=== PATIENT | male | born 1940 | race Caucasian/White ===

== ENCOUNTER 2017-02-10 02:23 | Outpatient (CLI) | payer MEDICARE ==
[~2017-02-10 02:23] MED LIST: AMLO5TAB PO; CARV25TA2 PO; CLON0.3T PO; CLOP75TA15 PO; DOL10T PO; ENAL20TA75 PO; FENO200C PO; HYDR-565 PO; INSU100V12 SQ; NITR0.4T51 SL; ONDA8TAB9 PO; PANT-47 PO; POTA8TAB3 PO; PROC-8 PO; ROSU5TAB PO; TERA5CAP4 PO
== END 2017-02-10 23:59 | disposition home or self-care (01) ==
LOC: DIABETIC 02:23
PROVIDERS: ATTEND Family Medicine
DX: E11.65 Type 2 diabetes mellitus with hyperglycemia (principal); I10 Essential (primary) hypertension; Z85.828 Personal history of other malignant neoplasm of skin
CPT/HCPCS: G0108

== ENCOUNTER 2017-07-01 06:55 | Day surgery (SDC) | payer MEDICARE, OTHER ==
[2017-06-30 15:29] LABS: BASOPHILS % (AUTO) 0.3 % (0-1); EOSINOPHILS # (AUTO) 0.2 X10'3 (0-0.9); EOSINOPHILS % (AUTO) 3.5 % (0-6); HEMATOCRIT 40.4 % (42.0-52.0); HEMOGLOBIN 14.2 g/dl (14.0-17.9); LYMPHOCYTES # (AUTO) 1.5 X10'3 (1.1-4.8); LYMPHOCYTES % (AUTO) 24.9 % (21-51); MEAN CORPUSCULAR HEMOGLOBIN 31.2 PG (27.0-31.0); MEAN CORPUSCULAR HGB CONC 35.1 % (33.0-36.5); MEAN CORPUSCULAR VOLUME 88.8 FL (78-98); MEAN PLATELET VOLUME 9.7 FL (7.4-10.4); MONOCYTES # (AUTO) 0.5 X10'3 (0-0.9); MONOCYTES % (AUTO) 9.1 % (2-12); NEUTROPHILS # (AUTO) 3.6 X10'3 (1.8-7.7); NEUTROPHILS % (AUTO) 62.2 % (42-75); PLATELET COUNT 249 X10'3 (140-440); RED BLOOD COUNT 4.55 X10'6 (4.70-6.10); RED CELL DISTRIBUTION WIDTH 14.1 % (11.5-14.5); WHITE BLOOD COUNT 5.8 X10'3 (4.5-11.0)
[2017-06-30 15:40] LABS: INR 1.1 INR; PARTIAL THROMBOPLASTIN TIME 26 SECONDS (22-32); PROTHROMBIN TIME 11.5 SECONDS (9.0-12.0)
[2017-06-30 15:47] LABS: ALBUMIN 3.7 G/DL (3.4-5.0); ANION GAP 7 (8-16); BLOOD UREA NITROGEN 14 MG/DL (7-18); BUN/CREATININE RATIO 13.2 (5.4-32.0); CALCIUM 9.4 MG/DL (8.5-10.1); CHLORIDE 104 MMOL/L (99-107); CREATININE 1.06 MG/DL (0.60-1.10); GLUCOSE 232 MG/DL (70-104); POTASSIUM 3.2 MMOL/L (3.5-5.1); SODIUM 142 MMOL/L (135-145); TOTAL CARBON DIOXIDE 30.7 MMOL/L (24-32); eGFR 68 ML/MIN
[~2017-07-01] VITALS: Ht 182.9 cm; Wt 89.9 kg
[2017-07-01] VITALS (24 sets, daily range): BP systolic 127–248; BP diastolic 52–107
[~2017-07-01 06:55] MED LIST changes: +FURO-149 PO; +ISOS30TA6 PO; +LINA5TAB4 PO; -ONDA8TAB9 PO; -PANT-47 PO; -PROC-8 PO; +UMEC1DIS INH
[2017-07-01] MEDS ORDERED: normal saline 1000ml 1,000 ML IV SCH (07:15)
[2017-07-01] MEDS ORDERED: diphenhydrAMINE 25mg capsule PO PRN (07:15)
[2017-07-01] MEDS ORDERED: LORazepam 0.5 MG tablet PO PRN (07:20)
[2017-07-01] MEDS ORDERED: ASPI81TA52 PO (07:58)
[2017-07-01] MEDS ORDERED: NITR0.4T48 SL (07:58)
[2017-07-01] MEDS ORDERED: POTA10TA19 PO (08:01)
[2017-07-01] MEDS ORDERED: MULT-38 PO (08:09)
[2017-07-01] MEDS ORDERED: mega red PO (08:09)
[2017-07-01] MEDS ORDERED: PROC-8 PO (08:09)
[2017-07-01] MEDS ORDERED: SAW/1TAB2 PO (08:09)
[2017-07-01] MEDS ORDERED: CALC625T31 PO (08:09)
[2017-07-01] MEDS ORDERED: midazolam 2 mg/2 ml injection ONE ×2 (08:38→11:46)
[2017-07-01] MEDS ORDERED: fentaNYL/PF 50MCG/1 ML 2ML syringe ONE (08:38)
[2017-07-01] MEDS ORDERED: nitroGLYCERIN-Tridil 50MG/D5W 250 ML IV ONE (08:39)
[2017-07-01] MEDS ORDERED: LIDOcaine 1% w/EPI 1:100,000 30ml vial (MDV) ONE (08:39)
[2017-07-01] MEDS ORDERED: iohexol 350 MG/ML 50ML vial IV ONE ×2 (08:39→10:46)
[2017-07-01] MEDS ORDERED: heparin 1,000unit/ml 10ml vial 10 ML ONE (08:39)
[2017-07-01] MEDS ORDERED: iohexol 350MG/ML 100ml bottle IV ONE ×3 (08:39→11:50)
[2017-07-01] MEDS ORDERED: diltiazem 5mg/ml 5ml inj. IV ONE (10:30)
[2017-07-01] MEDS ORDERED: hydrALAZINE 20mg/ml inj. IV ONE (11:52)
[2017-07-01] MEDS ORDERED: clopidogrel 300mg tablet ONE (12:00)
[2017-07-01] MEDS ORDERED: MORPHINE 2MG in 2ml NS syringe ONE (12:36)
[2017-07-01] MEDS ORDERED: nitroGLYCERIN 0.4mg SUBLingual tab SL ONE (12:37)
[2017-07-01] MEDS ORDERED: morphine 2 MG/ML inj. syringe IV PRN (12:40)
[2017-07-01] MEDS ORDERED: HYDROcodone/acetaminophen 10/325mg tab PO PRN ×3 (12:50→13:35)
[2017-07-01] MEDS ORDERED: magnesium hydroxide 30ml (MOM) UD suspension PO PRN (12:50)
[2017-07-01] MEDS ORDERED: acetaminophen 325mg tablet PO PRN (12:50)
[2017-07-01] MEDS ORDERED: heparin 10,000 units/1 ML INJ IV PRN (12:50)
[2017-07-01] MEDS ORDERED: proCHLORperazine 10 MG/2 ml inj IV PRN (12:50)
[2017-07-01] MEDS ORDERED: heparin 10,000 units/1 ML INJ IV ONE (12:50)
[2017-07-01] MEDS: HYDROcodone/acetaminophen 10/325mg tab PO PRN ×3 (12:54→17:42)
[2017-07-01] MEDS: HYDROmorphone inj. 0.5 MG/0.5 ML DISP.SYRIN IV PRN ×3 (13:19→17:40)
[2017-07-01] MEDS ORDERED: nitroGLYCERIN-Tridil 50MG/D5W 250 ML IV SCH (13:30)
[2017-07-01] MEDS ORDERED: nitroGLYCERIN 0.4mg SUBLingual tab SL PRN (13:35)
[2017-07-01] MEDS ORDERED: proCHLORperazine 10mg tablet PO PRN ×2 (13:35→14:00)
[2017-07-01] MEDS: hydrALAZINE 20mg/ml inj. IV PRN ×2 (16:33→20:21)
[2017-07-01] MEDS ORDERED: ondansetron/PF 4mg/2ml inj ONE (18:00)
[2017-07-01] MEDS ORDERED: POTASSIUM CHLORIDE PO SCH (20:00)
[2017-07-01] MEDS ORDERED: INSULIN DETEMIR 60 UNIT SQ SCH (20:00)
[2017-07-01] MEDS ORDERED: docusate sod 100mg capsule PO SCH (20:00)
[2017-07-01] MEDS ORDERED: carVEDilol 12.5mg tablet PO SCH (20:00)
[2017-07-01] MEDS ORDERED: clopidogrel 75mg tablet PO SCH (21:00)
[2017-07-01] MEDS ORDERED: amLODIPine 5mg tablet PO SCH (21:00)
[2017-07-01] MEDS ORDERED: fenofibrate 145mg tablet PO SCH (21:00)
[2017-07-01] MEDS ORDERED: cloNIDine 0.1 mg tablet PO SCH (21:00)
[2017-07-01] MEDS ORDERED: terazosin 5mg capsule PO SCH (21:00)
[2017-07-02] MEDS ORDERED: linagliptin 5mg tablet PO SCH (08:00)
[2017-07-02] MEDS ORDERED: aspirin 325mg tablet, delayed-release (Ecotrin) PO SCH (08:00)
[2017-07-02] MEDS ORDERED: SAW PO SCH (08:00)
[2017-07-02] MEDS ORDERED: SOD SEL PO SCH (08:00)
[2017-07-02] MEDS ORDERED: lisinopril 2.5mg tablet PO SCH (08:00)
[2017-07-02] MEDS ORDERED: clopidogrel 75mg tablet PO SCH (08:00)
[2017-07-02] MEDS ORDERED: BETA PO SCH (08:00)
[2017-07-02] MEDS ORDERED: PYG PO SCH (08:00)
[2017-07-02] MEDS ORDERED: LYC PO SCH (08:00)
[2017-07-02] MEDS ORDERED: furosemide 40mg tablet PO SCH (08:00)
[2017-07-02] MEDS ORDERED: isosorbide mononitrate 30mg tab.SR.24H PO SCH (08:00)
[2017-07-02] MEDS ORDERED: atorvastatin 20mg tablet PO SCH (08:00)
[2017-07-02] MEDS ORDERED: multivitamins, therapeutics tablet PO SCH (08:00)
[2017-07-02] MEDS ORDERED: methadone 5mg tablet PO SCH (08:00)
[2017-07-02] MEDS ORDERED: MEGA RED PO SCH (08:00)
[2017-07-02] MEDS ORDERED: VIT E PO SCH (08:00)
== END 2017-07-01 20:50 | disposition home or self-care (01) ==
LOC: SSTAY O 06:55
PROVIDERS: ATTEND Internal Medicine Cardiovascular Disease
DX: I25.719 Atherosclerosis of autologous vein coronary artery bypass graft(s) with unspecified angina pectoris (principal); E11.9 Type 2 diabetes mellitus without complications; E78.5 Hyperlipidemia, unspecified; I11.0 Hypertensive heart disease with heart failure; I50.9 Heart failure, unspecified; I25.2 Old myocardial infarction; K21.9 Gastro-esophageal reflux disease without esophagitis; F32.9 Major depressive disorder, single episode, unspecified; Z95.1 Presence of aortocoronary bypass graft; Z79.891 Long term (current) use of opiate analgesic; Z79.82 Long term (current) use of aspirin; Z95.5 Presence of coronary angioplasty implant and graft; Z85.828 Personal history of other malignant neoplasm of skin; Z90.49 Acquired absence of other specified parts of digestive tract; Z91.048 Other nonmedicinal substance allergy status; Z88.8 Allergy status to other drugs, medicaments and biological substances; Z87.891 Personal history of nicotine dependence; Z79.4 Long term (current) use of insulin; Z79.899 Other long term (current) drug therapy
CPT/HCPCS: 36415; 80048; 82948; 85025; 85347; 85610; 85730; 93005; 93459; 99152; 99153; A6257; C1725; C1769; C1874; C9604; J0360; J1170; J1644; J2250; J2274; J2405; J3010; J3490; J7030; Q0163; Q9967; A4620

== ENCOUNTER 2017-08-05 08:54 | Day surgery (SDC) | payer MEDICARE, OTHER ==
[2017-08-04 11:33] LABS: BASOPHILS # (AUTO) 0.1 X10'3 (0-0.2); EOSINOPHILS # (AUTO) 0.2 X10'3 (0-0.9); EOSINOPHILS % (AUTO) 3.4 % (0-6); HEMATOCRIT 39.6 % (42.0-52.0); HEMOGLOBIN 14.1 g/dl (14.0-17.9); LYMPHOCYTES # (AUTO) 1.1 X10'3 (1.1-4.8); LYMPHOCYTES % (AUTO) 18.2 % (21-51); MEAN CORPUSCULAR HEMOGLOBIN 31.3 PG (27.0-31.0); MEAN CORPUSCULAR HGB CONC 35.5 % (33.0-36.5); MEAN CORPUSCULAR VOLUME 88.1 FL (78-98); MEAN PLATELET VOLUME 9.5 FL (7.4-10.4); MONOCYTES # (AUTO) 0.5 X10'3 (0-0.9); MONOCYTES % (AUTO) 8.8 % (2-12); NEUTROPHILS # (AUTO) 4.3 X10'3 (1.8-7.7); NEUTROPHILS % (AUTO) 68.6 % (42-75); PLATELET COUNT 238 X10'3 (140-440); RED CELL DISTRIBUTION WIDTH 13.9 % (11.5-14.5); WHITE BLOOD COUNT 6.2 X10'3 (4.5-11.0)
[2017-08-04 11:41] LABS: INR 1.1 INR; PARTIAL THROMBOPLASTIN TIME 26 SECONDS (22-32); PROTHROMBIN TIME 11.6 SECONDS (9.0-12.0)
[2017-08-04 11:42] LABS: ALBUMIN 3.6 G/DL (3.4-5.0); ANION GAP 8 (8-16); BLOOD UREA NITROGEN 12 MG/DL (7-18); BUN/CREATININE RATIO 10.3 (5.4-32.0); CALCIUM 9.4 MG/DL (8.5-10.1); CHLORIDE 104 MMOL/L (99-107); CREATININE 1.17 MG/DL (0.60-1.10); GLUCOSE 243 MG/DL (70-104); POTASSIUM 3.5 MMOL/L (3.5-5.1); SODIUM 142 MMOL/L (135-145); TOTAL CARBON DIOXIDE 29.6 MMOL/L (24-32); eGFR 60 ML/MIN
[~2017-08-05] VITALS: Ht 182.9 cm; Wt 88.0 kg
[2017-08-05] VITALS (17 sets, daily range): BP systolic 136–181; BP diastolic 62–94
[~2017-08-05 08:54] MED LIST changes: +ASPI81TA52 PO; +CALC625T31 PO; +MULT-38 PO; +NITR0.4T48 SL; -NITR0.4T51 SL; +POTA10TA19 PO; -POTA8TAB3 PO; +PROC-8 PO; +SAW/1TAB2 PO; +calcium polycarbophil 625mg tablet PO SCH; +mega red PO
[2017-08-05] MEDS ORDERED: LORazepam 0.5 MG tablet PO PRN (09:25)
[2017-08-05] MEDS ORDERED: diphenhydrAMINE 25mg capsule PO PRN (09:25)
[2017-08-05] MEDS ORDERED: HYDROcodone/acetaminophen 10/325mg tab PO PRN (09:25)
[2017-08-05] MEDS ORDERED: INSU100V12 SQ (10:36)
[2017-08-05] MEDS ORDERED: CARV-50 PO (10:36)
[2017-08-05] MEDS ORDERED: isosorbide dinitrate PO (10:36)
[2017-08-05] MEDS ORDERED: METH-603 PO (10:36)
[2017-08-05] MEDS ORDERED: UMEC1DIS PO (10:36)
[2017-08-05] MEDS ORDERED: AMLO-93 PO (10:36)
[2017-08-05] MEDS ORDERED: ASPI-1264 PO (10:36)
[2017-08-05] MEDS ORDERED: iohexol 350 MG/1 ML 200ml bottle ONE (10:57)
[2017-08-05] MEDS ORDERED: midazolam 2 mg/2 ml injection ONE (10:57)
[2017-08-05] MEDS ORDERED: heparin 1,000unit/ml 10ml vial 10 ML ONE ×2 (10:57→13:24)
[2017-08-05] MEDS ORDERED: nitroGLYCERIN-Tridil 50MG/D5W 250 ML IV ONE (10:57)
[2017-08-05] MEDS ORDERED: fentaNYL/PF 50MCG/1 ML 2ML syringe ONE (10:57)
[2017-08-05] MEDS: normal saline 1000ml 1,000 ML IV SCH ×2 (11:07→18:51)
[2017-08-05] MEDS ORDERED: LIDOcaine 1% w/EPI 1:100,000 30ml vial (MDV) ONE (11:25)
[2017-08-05] MEDS ORDERED: HYDROmorphone 1 mg/ml syringe ONE ×2 (12:51→13:49)
[2017-08-05] MEDS ORDERED: heparin 1,000 UNITS/NS 500ml 500 ML ONE (12:53)
[2017-08-05] MEDS ORDERED: iohexol 350MG/ML 100ml bottle IV ONE (12:56)
[2017-08-05] MEDS ORDERED: atropine 0.1mg/ml 10ml syringe ONE (13:10)
[2017-08-05] MEDS ORDERED: ondansetron/PF 4mg/2ml inj ONE (13:12)
[2017-08-05] MEDS ORDERED: ticagrelor 90mg tablet ONE (13:30)
[2017-08-05] MEDS ORDERED: tirofiban 5mg in NS 100mL 100 ML IV ONE (13:30)
[2017-08-05] MEDS: tirofiban 5mg in NS 100mL 100 ML IV SCH (15:04)
[2017-08-05] MEDS ORDERED: aspirin 81mg tab.chew PO ONE (15:10)
[2017-08-05] MEDS ORDERED: HYDROmorphone 1 mg/ml syringe IV PRN (15:10)
[2017-08-05] MEDS ORDERED: cyclobenzaprine 10mg tablet PO PRN (15:10)
[2017-08-05] MEDS ORDERED: non-formulary drug (Umeclidinium Brm/Vilanterol Tr (Anoro Ellipta 62.5-25 Mcg INH) 1 PUFF) PO PRN (15:10)
[2017-08-05] MEDS ORDERED: proCHLORperazine 10mg tablet PO PRN (15:10)
[2017-08-05] MEDS ORDERED: magnesium hydroxide 30ml (MOM) UD suspension PO PRN (15:10)
[2017-08-05] MEDS ORDERED: nitroGLYCERIN 0.4mg SUBLingual tab SL PRN (15:10)
[2017-08-05] MEDS ORDERED: OXAZEpam 15mg capsule PO PRN (15:10)
[2017-08-05] MEDS: HYDROmorphone 1 mg/ml syringe IV PRN ×3 (16:13→21:00)
[2017-08-05] MEDS: HYDROcodone/acetaminophen 10/325mg tab PO PRN (16:21)
[2017-08-05] MEDS ORDERED: AMLO10TA4 PO (17:29)
[2017-08-05] MEDS ORDERED: LIDOcaine 1.5% w/epinephrine 1:200,000 5ml ampul ONE (18:21)
[2017-08-05] MEDS ORDERED: nitroGLYCERIN-Tridil 50MG/D5W 250 ML IV SCH (18:40)
[2017-08-05] MEDS: nitroGLYCERIN 0.4mg SUBLingual tab SL PRN ×4 (18:52→21:41)
[2017-08-05] MEDS: hydrALAZINE 20mg/ml inj. IV PRN (18:55)
[2017-08-05] MEDS: docusate sod 100mg capsule PO SCH (20:00)
[2017-08-05] MEDS ORDERED: lisinopril 20mg tablet PO SCH (20:00)
[2017-08-05] MEDS ORDERED: ticagrelor 90mg tablet PO SCH (20:00)
[2017-08-05] MEDS ORDERED: terazosin 5mg capsule PO SCH (21:00)
[2017-08-05] MEDS ORDERED: Insulin Detemir pen SQ SCH (21:00)
[2017-08-05] MEDS ORDERED: fenofibrate 145mg tablet PO SCH (21:00)
[2017-08-05] MEDS: methadone 10mg tablet PO SCH (21:02)
[2017-08-05] MEDS: cloNIDine 0.1 mg tablet PO SCH (21:02)
[2017-08-05] MEDS: potassium chloride 10mEq ER tablet PO SCH (21:03)
[2017-08-05] MEDS: carVEDilol 12.5mg tablet PO SCH (21:03)
[2017-08-05] MEDS ORDERED: HYDROmorphone 1 mg/ml syringe IV ONE (21:50)
[2017-08-05] MEDS ORDERED: insulin glargine (Lantus) pen - multi-dose SQ SCH (22:13)
[2017-08-05] MEDS: ondansetron/PF 4mg/2ml inj IV PRN (22:23)
[2017-08-06] VITALS (11 sets, daily range): BP systolic 107–179; BP diastolic 41–82
[2017-08-06] MEDS ORDERED: LORazepam 2 mg/ml vial IV ONE
[2017-08-06] MEDS: morphine 2 MG/ML inj. syringe IV PRN ×2 (00:35→02:46)
[2017-08-06] MEDS: hydrALAZINE 20mg/ml inj. IV PRN (02:47)
[2017-08-06] MEDS: tirofiban 5mg in NS 100mL 100 ML IV SCH (03:13)
[2017-08-06] MEDS: HYDROcodone/acetaminophen 10/325mg tab PO PRN (03:43)
[2017-08-06] MEDS: normal saline 1000ml 1,000 ML IV SCH ×2 (04:04→15:25)
[2017-08-06 05:17] LABS: BASOPHILS % (AUTO) 0 % (0-1); EOSINOPHILS % (AUTO) 0.1 % (0-6); HEMATOCRIT 43.2 % (42.0-52.0); LYMPHOCYTES # (AUTO) 0.8 X10'3 (1.1-4.8); LYMPHOCYTES % (AUTO) 7.6 % (21-51); MEAN CORPUSCULAR HEMOGLOBIN 30.7 PG (27.0-31.0); MEAN CORPUSCULAR HGB CONC 34.7 % (33.0-36.5); MEAN CORPUSCULAR VOLUME 88.3 FL (78-98); MEAN PLATELET VOLUME 9.6 FL (7.4-10.4); MONOCYTES # (AUTO) 0.7 X10'3 (0-0.9); MONOCYTES % (AUTO) 6.5 % (2-12); NEUTROPHILS # (AUTO) 9.1 X10'3 (1.8-7.7); NEUTROPHILS % (AUTO) 85.8 % (42-75); PLATELET COUNT 281 X10'3 (140-440); RED BLOOD COUNT 4.89 X10'6 (4.70-6.10); RED CELL DISTRIBUTION WIDTH 14.2 % (11.5-14.5); WHITE BLOOD COUNT 10.7 X10'3 (4.5-11.0)
[2017-08-06] MEDS: ondansetron/PF 4mg/2ml inj IV PRN (05:21)
[2017-08-06 05:24] LABS: ALBUMIN 3.8 G/DL (3.4-5.0); ANION GAP 16 (8-16); BLOOD UREA NITROGEN 14 MG/DL (7-18); BUN/CREATININE RATIO 13.1 (5.4-32.0); CHLORIDE 105 MMOL/L (99-107); CREATININE 1.07 MG/DL (0.60-1.10); GLUCOSE 250 MG/DL (70-104); SODIUM 146 MMOL/L (135-145); TOTAL CARBON DIOXIDE 25.2 MMOL/L (24-32); eGFR 67 ML/MIN
[2017-08-06 05:40] LABS: POTASSIUM 2.9 MMOL/L (3.5-5.1)
[2017-08-06] MEDS ORDERED: potassium Cl 40MEQ/NS 500ml 500 ML IV PRN ×2 (05:55)
[2017-08-06] MEDS ORDERED: magnesium 4gm in 100ml NS 100 ML IV PRN (05:55)
[2017-08-06] MEDS ORDERED: magnesium Cl slow-release 64mg tablet PO PRN (05:55)
[2017-08-06] MEDS ORDERED: potassium Cl 20 mEq SR tablet PO PRN (05:55)
[2017-08-06] MEDS ORDERED: magnesium/D5W IVPB 100 ML IV PRN (05:55)
[2017-08-06] MEDS ORDERED: LORazepam 2 mg/ml vial IV PRN (06:00)
[2017-08-06] MEDS ORDERED: proCHLORperazine 10 MG/2 ml inj IV PRN (07:40)
[2017-08-06] MEDS ORDERED: TICA90TA PO (07:42)
[2017-08-06] MEDS ORDERED: ASPI-1265 PO (07:42)
[2017-08-06] MEDS: potassium chloride 10mEq ER tablet PO SCH (07:57)
[2017-08-06] MEDS: methadone 10mg tablet PO SCH (07:58)
[2017-08-06] MEDS: cloNIDine 0.1 mg tablet PO SCH ×2 (07:58→13:58)
[2017-08-06] MEDS: docusate sod 100mg capsule PO SCH (07:58)
[2017-08-06] MEDS ORDERED: aspirin 81mg tab.chew PO SCH (08:00)
[2017-08-06] MEDS ORDERED: MEGA RED PO SCH (08:00)
[2017-08-06] MEDS ORDERED: amLODIPine 5mg tablet PO SCH ×2 (08:00)
[2017-08-06] MEDS ORDERED: furosemide 40mg tablet PO SCH (08:00)
[2017-08-06] MEDS ORDERED: LYC PO SCH (08:00)
[2017-08-06] MEDS ORDERED: multivitamins, therapeutics tablet PO SCH (08:00)
[2017-08-06] MEDS ORDERED: VIT E PO SCH (08:00)
[2017-08-06] MEDS: carVEDilol 12.5mg tablet PO SCH (08:00)
[2017-08-06] MEDS ORDERED: isosorbide dinitrate 30mg tablet PO SCH (08:00)
[2017-08-06] MEDS ORDERED: lisinopril 20mg tablet PO SCH (08:00)
[2017-08-06] MEDS ORDERED: BETA PO SCH (08:00)
[2017-08-06] MEDS ORDERED: SAW PO SCH (08:00)
[2017-08-06] MEDS ORDERED: linagliptin 5mg tablet PO SCH (08:00)
[2017-08-06] MEDS ORDERED: Umeclidinium Brm/Vilanterol Tr (Anoro Ellipta 62.5-25 Mcg INH IH SCH (08:00)
[2017-08-06] MEDS ORDERED: PYG PO SCH (08:00)
[2017-08-06] MEDS ORDERED: atorvastatin 20mg tablet PO SCH (08:00)
[2017-08-06] MEDS ORDERED: SOD SEL PO SCH (08:00)
[2017-08-06] MEDS ORDERED: aspirin 325mg tablet PO SCH (08:00)
[2017-08-06 09:30] LABS: HEMOGLOBIN A1C 7.9 % (4.5-6.2)
[2017-08-06] MEDS: potassium Cl 20 mEq SR tablet PO PRN ×2 (11:30→14:43)
[2017-08-06] MEDS ORDERED: insulin Lispro (HumaLOG) vial - multi-dose SQ SCH (12:25)
[2017-08-06] MEDS ORDERED: insulin glargine (Lantus) pen - multi-dose SQ SCH (21:00)
== END 2017-08-06 16:40 | disposition home or self-care (01) ==
LOC: SSTAY O 08:54 → PCU 3S 20:07 → SSTAY O 08-06 16:40
PROVIDERS: ATTEND Internal Medicine Cardiovascular Disease
DX: I25.798 Atherosclerosis of other coronary artery bypass graft(s) with other forms of angina pectoris (principal); E78.5 Hyperlipidemia, unspecified; E11.9 Type 2 diabetes mellitus without complications; I70.1 Atherosclerosis of renal artery; I11.0 Hypertensive heart disease with heart failure; I50.9 Heart failure, unspecified; K21.9 Gastro-esophageal reflux disease without esophagitis; I25.2 Old myocardial infarction; F32.9 Major depressive disorder, single episode, unspecified; J44.9 Chronic obstructive pulmonary disease, unspecified; Z90.49 Acquired absence of other specified parts of digestive tract; Z79.82 Long term (current) use of aspirin; Z91.048 Other nonmedicinal substance allergy status; Z86.79 Personal history of other diseases of the circulatory system; Z95.5 Presence of coronary angioplasty implant and graft; Z95.1 Presence of aortocoronary bypass graft; Z79.891 Long term (current) use of opiate analgesic; Z79.4 Long term (current) use of insulin; Z87.891 Personal history of nicotine dependence; Z85.828 Personal history of other malignant neoplasm of skin; Z88.8 Allergy status to other drugs, medicaments and biological substances; Z98.890 Other specified postprocedural states; Z79.899 Other long term (current) drug therapy
CPT/HCPCS: 36415; 80048; 82948; 83036; 85025; 85347; 85610; 85730; 87070; 93005; 99152; 99153; A4315; A6257; C1725; C1760; C1769; C1874; C1887; C1894; C9600; C9601; J0360; J0780; J1170; J1644; J2060; J2250; J2270; J2405; J3010; J3246; J3480; J3490; J7030; Q0163; Q9967; A4620; J0461; J1815

== ENCOUNTER 2017-08-10 08:02 | Inpatient (IN) | payer MEDICARE, OTHER ==
[~2017-08-10] VITALS: Ht 182.9 cm; Wt 90.9 kg
[~2017-08-10 08:02] MED LIST changes: +AMLO10TA4 PO; -AMLO5TAB PO; +ASPI-1265 PO; -ASPI81TA52 PO; +CARV-50 PO; -CARV25TA2 PO; -CLOP75TA15 PO; -DOL10T PO; -ISOS30TA6 PO; +METH-603 PO; +TICA90TA PO; +UMEC1DIS PO; -calcium polycarbophil 625mg tablet PO SCH; +isosorbide dinitrate PO
[2017-08-10] MEDS ORDERED: CefTRIAXone 2gm/D5W 50ml 50 ML IV ONE (08:25)
[2017-08-10] MEDS ORDERED: normal saline 1000ML IV soln IV ONE (08:25)
[2017-08-10] MEDS ORDERED: ondansetron/PF 4mg/2ml inj IV ONE (08:45)
[2017-08-10 08:47] LABS: CLARITY,URINE CLOUDY (Clear); COLOR,URINE YELLOW (Yellow); GLUCOSE, URINE NEGATIVE (Neg); KETONES,URINE NEGATIVE (Neg); LEUKOCYTE ESTERASE ,URINE TRACE (Neg); NITRITES, URINE POSITIVE (Neg); OCCULT BLOOD,URINE SMALL (Neg); PROTEIN,URINE 100 mg/dl (Neg)
[2017-08-10 08:47] LABS: INR 1.2 INR; PARTIAL THROMBOPLASTIN TIME 37 SECONDS (22-32)
[2017-08-10 08:51] LABS: UA COLLECTION TYPE STRAIGHT CATH
[2017-08-10 08:53] LABS: WBC,URINE 20-30 /HPF (0-4)
[2017-08-10 08:54] LABS: BACTERIA,URINE 4+ /HPF (Neg); MUCUS STRANDS FEW /LPF (Neg); RBC,URINE 0-2 /HPF (0-2); SQUAMOUS EPITHELIAL CELL,UR FEW /LPF (FEW); TRANSITIONAL EPI CELLS,URINE FEW /HPF; WBC CLUMPS,URINE FEW /HPF (NEGATIVE)
[2017-08-10 08:54] LABS: ALANINE AMINOTRANSFERASE 24 U/L (12-78); ALBUMIN 2.6 G/DL (3.4-5.0); ALBUMIN/GLOBULIN RATIO 0.6 (1.1-1.5); ALKALINE PHOSPHATASE 72 IU/L (46-116); ANION GAP 9 (8-16); ASPARTATE AMINO TRANSFERASE 23 U/L (10-37); BILIRUBIN,TOTAL 0.6 MG/DL (0.1-1.0); BLOOD UREA NITROGEN 19 MG/DL (7-18); BUN/CREATININE RATIO 14.6 (5.4-32.0); CHLORIDE 103 MMOL/L (99-107); GLUCOSE 121 MG/DL (70-104); POTASSIUM 4.3 MMOL/L (3.5-5.1); SODIUM 135 MMOL/L (135-145); TOTAL CARBON DIOXIDE 22.8 MMOL/L (24-32); TOTAL PROTEIN 7.2 G/DL (6.4-8.2); eGFR 54 ML/MIN
[2017-08-10 09:45] LABS: BASOPHILS % (AUTO) 0 % (0-1); EOSINOPHILS # (AUTO) 0.1 X10'3 (0-0.9); EOSINOPHILS % (AUTO) 1.1 % (0-6); HEMATOCRIT 33.9 % (42.0-52.0); HEMOGLOBIN 11.6 g/dl (14.0-17.9); LYMPHOCYTES # (AUTO) 0.4 X10'3 (1.1-4.8); LYMPHOCYTES % (AUTO) 3.8 % (21-51); MEAN CORPUSCULAR HEMOGLOBIN 30.8 PG (27.0-31.0); MEAN CORPUSCULAR HGB CONC 34.2 % (33.0-36.5); MEAN CORPUSCULAR VOLUME 90.1 FL (78-98); MEAN PLATELET VOLUME 9.7 FL (7.4-10.4); MONOCYTES # (AUTO) 0.8 X10'3 (0-0.9); MONOCYTES % (AUTO) 6.8 % (2-12); NEUTROPHILS # (AUTO) 10.4 X10'3 (1.8-7.7); NEUTROPHILS % (AUTO) 88.3 % (42-75); PLATELET COUNT 211 X10'3 (140-440); RED BLOOD COUNT 3.76 X10'6 (4.70-6.10); RED CELL DISTRIBUTION WIDTH 15.3 % (11.5-14.5); WHITE BLOOD COUNT 11.8 X10'3 (4.5-11.0)
[2017-08-10] MEDS ORDERED: furosemide 20 MG/2 ML vial IV ONE (10:35)
[2017-08-10] MEDS ORDERED: mag hydrox/Alum hydrox/simeth 30ml oral suspension PO PRN (10:40)
[2017-08-10] MEDS ORDERED: magnesium hydroxide 30ml (MOM) UD suspension PO PRN (10:40)
[2017-08-10] MEDS ORDERED: morphine 4 MG/ML inj SYRINge IV PRN (10:40)
[2017-08-10 12:00] VITALS: BP 179/80
[2017-08-10] MEDS ORDERED: VILANTEROL TR PO PRN (12:25)
[2017-08-10] MEDS ORDERED: UMECLIDINIUM BRM PO PRN (12:25)
[2017-08-10] MEDS ORDERED: nitroGLYCERIN 0.4mg SUBLingual tab SL SCH (12:30)
[2017-08-10] MEDS ORDERED: dextrose ORAL solution 15 GM/59 ML bottle PO PRN ×2 (12:35)
[2017-08-10] MEDS ORDERED: glucagon, human recombinant 1mg kit SUBCUT PRN (12:35)
[2017-08-10] MEDS ORDERED: MESSAGE TO PHARMACY PO ONE (12:35)
[2017-08-10] MEDS ORDERED: dextrose 50%-water 50ml dispensing syringe IV PRN ×2 (12:35)
[2017-08-10] MEDS ORDERED: nitroGLYCERIN 0.4mg SUBLingual tab SL PRN (12:45)
[2017-08-10] MEDS: aspirin 81mg tab.chew PO SCH (13:23)
[2017-08-10] MEDS: cloNIDine 0.1 mg tablet PO SCH ×2 (13:24→20:42)
[2017-08-10 15:00] VITALS: BP 156/69
[2017-08-10] MEDS: acetaminophen 325mg tablet PO PRN ×2 (15:36→21:58)
[2017-08-10 19:00] VITALS: BP 143/68
[2017-08-10] MEDS: methadone 10mg tablet PO SCH (20:42)
[2017-08-10] MEDS: carVEDilol 12.5mg tablet PO SCH (20:42)
[2017-08-10] MEDS: docusate sod 100mg capsule PO SCH (20:43)
[2017-08-10] MEDS: ticagrelor 90mg tablet PO SCH (20:43)
[2017-08-10] MEDS: potassium chloride 8mEq ER tablet PO SCH (20:52)
[2017-08-10] MEDS: insulin glargine (Lantus) pen - multi-dose SQ SCH (21:00)
[2017-08-10] MEDS: FENOFIBRATE MICRONIZED 200 MG PO SCH (21:00)
[2017-08-10] MEDS: sennosides 8.6mg tablet PO SCH (21:58)
[2017-08-10] MEDS: terazosin 5mg capsule PO SCH (21:59)
[2017-08-10 22:05] LABS: ABG BASE EXCESS -1.1 mmol/L (-2.0-3.0); ABG HCO3 21.5 mmol/L (22.0-26.0); ABG PCO2 (T) 33.3 mmHg (35.0-48.0); ABG PH (T) 7.438 (7.350-7.450); ABG PO2 (T) 71.9 mmHg (83-108); ALLEN'S TEST Positive; FCOHb 0.2 % (0.5-1.5); FLOW 2 L/min; FMetHb 0.6 % (0.3-1.12); FO2Hb 92.3 % (94-100); PATIENT TEMPERATURE 39.2; TOTAL HEMOGLOBIN 13.4 G/dl (14.0-18.0)
[2017-08-10 23:00] VITALS: BP 155/71
[2017-08-10] MEDS ORDERED: diphenhydrAMINE 50 mg/ml inj IV ONE (23:00)
[2017-08-10] MEDS ORDERED: metoclopramide 5 mg/ml inj IV ONE (23:00)
[2017-08-11] MEDS: HYDROcodone/acetaminophen 10/325mg tab PO PRN ×3 (00:55→23:00)
[2017-08-11 02:42] LABS: BASOPHILS % (AUTO) 0.1 % (0-1); EOSINOPHILS % (AUTO) 0 % (0-6); HEMATOCRIT 35.6 % (42.0-52.0); HEMOGLOBIN 12.3 g/dl (14.0-17.9); LYMPHOCYTES # (AUTO) 0.3 X10'3 (1.1-4.8); LYMPHOCYTES % (AUTO) 3.8 % (21-51); MEAN CORPUSCULAR HEMOGLOBIN 31.1 PG (27.0-31.0); MEAN CORPUSCULAR HGB CONC 34.5 % (33.0-36.5); MEAN CORPUSCULAR VOLUME 90.2 FL (78-98); MEAN PLATELET VOLUME 9.5 FL (7.4-10.4); MONOCYTES # (AUTO) 0.6 X10'3 (0-0.9); MONOCYTES % (AUTO) 7.1 % (2-12); NEUTROPHILS # (AUTO) 7.4 X10'3 (1.8-7.7); PLATELET COUNT 236 X10'3 (140-440); RED BLOOD COUNT 3.94 X10'6 (4.70-6.10); RED CELL DISTRIBUTION WIDTH 15.3 % (11.5-14.5); WHITE BLOOD COUNT 8.3 X10'3 (4.5-11.0)
[2017-08-11 03:00] VITALS: BP 144/75
[2017-08-11 03:00] LABS: ALBUMIN 2.4 G/DL (3.4-5.0); ANION GAP 13 (8-16); BLOOD UREA NITROGEN 18 MG/DL (7-18); BUN/CREATININE RATIO 15.1 (5.4-32.0); CALCIUM 9.7 MG/DL (8.5-10.1); CHLORIDE 103 MMOL/L (99-107); CREATININE 1.19 MG/DL (0.60-1.10); GLUCOSE 168 MG/DL (70-104); MAGNESIUM 1.9 MG/DL (1.5-2.4); POTASSIUM 3.9 MMOL/L (3.5-5.1); SODIUM 137 MMOL/L (135-145); TOTAL CARBON DIOXIDE 20.8 MMOL/L (24-32); eGFR 59 ML/MIN
[2017-08-11 03:04] LABS: TROPONIN I 1.71 NG/ML (0.0-0.05)
[2017-08-11] MEDS: acetaminophen 325mg tablet PO PRN ×2 (04:18→22:33)
[2017-08-11 06:00] VITALS: BP 138/70
[2017-08-11] MEDS ORDERED: PYG PO SCH (08:00)
[2017-08-11] MEDS ORDERED: SAW PO SCH (08:00)
[2017-08-11] MEDS ORDERED: BETA PO SCH (08:00)
[2017-08-11] MEDS ORDERED: SOD SEL PO SCH (08:00)
[2017-08-11] MEDS ORDERED: LYC PO SCH (08:00)
[2017-08-11] MEDS: UMECLIDINIUM BRM IH SCH (08:00)
[2017-08-11] MEDS ORDERED: MEGA RED PO SCH (08:00)
[2017-08-11] MEDS ORDERED: VIT E PO SCH (08:00)
[2017-08-11] MEDS: VILANTEROL TR IH SCH (08:00)
[2017-08-11] MEDS: CefTRIAXone 2gm/D5W 50ml 50 ML IV SCH (08:53)
[2017-08-11] MEDS: docusate sod 100mg capsule PO SCH ×2 (08:54→19:48)
[2017-08-11] MEDS: isosorbide mononitrate 30mg tab.SR.24H PO SCH (08:54)
[2017-08-11] MEDS: ticagrelor 90mg tablet PO SCH ×2 (08:54→19:49)
[2017-08-11] MEDS: carVEDilol 12.5mg tablet PO SCH ×2 (08:54→19:49)
[2017-08-11] MEDS: amLODIPine 5mg tablet PO SCH (08:54)
[2017-08-11] MEDS: aspirin 81mg tab.chew PO SCH (08:54)
[2017-08-11] MEDS: methadone 10mg tablet PO SCH ×2 (08:55→19:48)
[2017-08-11] MEDS: atorvastatin 20mg tablet PO SCH (08:55)
[2017-08-11] MEDS: cloNIDine 0.1 mg tablet PO SCH ×3 (08:55→21:16)
[2017-08-11] MEDS: multivitamins, therapeutics tablet PO SCH (08:55)
[2017-08-11] MEDS: potassium chloride 8mEq ER tablet PO SCH ×2 (08:55→19:49)
[2017-08-11 11:00] VITALS: BP 109/56
[2017-08-11] MEDS: insulin Lispro (HumaLOG) vial - multi-dose SQ SCH ×2 (13:21→19:06)
[2017-08-11 15:00] VITALS: BP 115/58
[2017-08-11 19:00] VITALS: BP 144/58
[2017-08-11] MEDS: proCHLORperazine 10mg tablet PO PRN (19:47)
[2017-08-11] MEDS: lactobacillus rhamnosus 10,000 MMU CELLS/CAPSULE PO SCH (19:48)
[2017-08-11] MEDS: FENOFIBRATE MICRONIZED 200 MG PO SCH (21:15)
[2017-08-11] MEDS: sennosides 8.6mg tablet PO SCH (21:15)
[2017-08-11] MEDS: terazosin 5mg capsule PO SCH (21:16)
[2017-08-11] MEDS: insulin glargine (Lantus) pen - multi-dose SQ SCH (21:21)
[2017-08-11 23:00] VITALS: BP 143/79
[2017-08-12] VITALS (7 sets, daily range): BP systolic 113–155; BP diastolic 53–77
[2017-08-12 05:45] LABS: BASOPHILS % (AUTO) 0 % (0-1); EOSINOPHILS % (AUTO) 0.5 % (0-6); HEMATOCRIT 32.4 % (42.0-52.0); HEMOGLOBIN 11.2 g/dl (14.0-17.9); LYMPHOCYTES # (AUTO) 0.5 X10'3 (1.1-4.8); LYMPHOCYTES % (AUTO) 7.4 % (21-51); MEAN CORPUSCULAR HEMOGLOBIN 30.8 PG (27.0-31.0); MEAN CORPUSCULAR HGB CONC 34.5 % (33.0-36.5); MEAN CORPUSCULAR VOLUME 89.2 FL (78-98); MEAN PLATELET VOLUME 9.7 FL (7.4-10.4); MONOCYTES % (AUTO) 15.6 % (2-12); NEUTROPHILS # (AUTO) 4.7 X10'3 (1.8-7.7); NEUTROPHILS % (AUTO) 76.5 % (42-75); PLATELET COUNT 258 X10'3 (140-440); RED BLOOD COUNT 3.63 X10'6 (4.70-6.10); RED CELL DISTRIBUTION WIDTH 15.3 % (11.5-14.5); WHITE BLOOD COUNT 6.2 X10'3 (4.5-11.0)
[2017-08-12 05:46] LABS: ALBUMIN 2.2 G/DL (3.4-5.0); ANION GAP 7 (8-16); BLOOD UREA NITROGEN 24 MG/DL (7-18); BUN/CREATININE RATIO 21.1 (5.4-32.0); CALCIUM 8.9 MG/DL (8.5-10.1); CHLORIDE 105 MMOL/L (99-107); CREATININE 1.14 MG/DL (0.60-1.10); GLUCOSE 255 MG/DL (70-104); SODIUM 139 MMOL/L (135-145); TOTAL CARBON DIOXIDE 26.9 MMOL/L (24-32); eGFR 62 ML/MIN
[2017-08-12] MEDS: CefTRIAXone 2gm/D5W 50ml 50 ML IV SCH (07:56)
[2017-08-12] MEDS: proCHLORperazine 10mg tablet PO PRN (07:56)
[2017-08-12] MEDS: methadone 10mg tablet PO SCH ×2 (08:05→19:53)
[2017-08-12] MEDS: cloNIDine 0.1 mg tablet PO SCH ×3 (08:05→21:01)
[2017-08-12] MEDS: insulin Lispro (HumaLOG) vial - multi-dose SQ SCH ×2 (08:08→18:50)
[2017-08-12] MEDS: ticagrelor 90mg tablet PO SCH ×2 (09:05→19:53)
[2017-08-12] MEDS: carVEDilol 12.5mg tablet PO SCH ×2 (09:06→19:53)
[2017-08-12] MEDS: amLODIPine 5mg tablet PO SCH (09:06)
[2017-08-12] MEDS: aspirin 81mg tab.chew PO SCH (09:06)
[2017-08-12] MEDS: isosorbide mononitrate 30mg tab.SR.24H PO SCH (09:07)
[2017-08-12] MEDS: multivitamins, therapeutics tablet PO SCH (10:31)
[2017-08-12] MEDS: docusate sod 100mg capsule PO SCH ×2 (10:31→19:53)
[2017-08-12] MEDS: atorvastatin 20mg tablet PO SCH (10:31)
[2017-08-12] MEDS: lactobacillus rhamnosus 10,000 MMU CELLS/CAPSULE PO SCH ×2 (10:31→19:53)
[2017-08-12] MEDS: potassium chloride 8mEq ER tablet PO SCH ×2 (10:32→19:52)
[2017-08-12] MEDS: UMECLIDINIUM BRM IH SCH (16:35)
[2017-08-12] MEDS: VILANTEROL TR IH SCH (16:35)
[2017-08-12] MEDS ORDERED: HYDROcodone/acetaminophen 5mg/325mg tablet PO PRN (17:45)
[2017-08-12] MEDS: FENOFIBRATE MICRONIZED 200 MG PO SCH (21:01)
[2017-08-12] MEDS: terazosin 5mg capsule PO SCH (21:01)
[2017-08-12] MEDS: sennosides 8.6mg tablet PO SCH (21:01)
[2017-08-12] MEDS: HYDROcodone/acetaminophen 10/325mg tab PO PRN (21:02)
[2017-08-12] MEDS: insulin glargine (Lantus) pen - multi-dose SQ SCH (21:17)
[2017-08-13] VITALS (7 sets, daily range): BP systolic 123–170; BP diastolic 64–88
[2017-08-13 06:27] LABS: BASOPHILS % (AUTO) 0.3 % (0-1); EOSINOPHILS # (AUTO) 0.2 X10'3 (0-0.9); HEMATOCRIT 34.6 % (42.0-52.0); HEMOGLOBIN 11.8 g/dl (14.0-17.9); LYMPHOCYTES # (AUTO) 0.8 X10'3 (1.1-4.8); LYMPHOCYTES % (AUTO) 11.2 % (21-51); MEAN CORPUSCULAR HEMOGLOBIN 30.6 PG (27.0-31.0); MEAN CORPUSCULAR HGB CONC 34.2 % (33.0-36.5); MEAN CORPUSCULAR VOLUME 89.4 FL (78-98); MEAN PLATELET VOLUME 9.6 FL (7.4-10.4); MONOCYTES # (AUTO) 0.8 X10'3 (0-0.9); NEUTROPHILS # (AUTO) 5.6 X10'3 (1.8-7.7); NEUTROPHILS % (AUTO) 74.5 % (42-75); PLATELET COUNT 290 X10'3 (140-440); RED BLOOD COUNT 3.87 X10'6 (4.70-6.10); RED CELL DISTRIBUTION WIDTH 15.6 % (11.5-14.5); WHITE BLOOD COUNT 7.5 X10'3 (4.5-11.0)
[2017-08-13 06:45] LABS: ALBUMIN 2.3 G/DL (3.4-5.0); ANION GAP 8 (8-16); BLOOD UREA NITROGEN 19 MG/DL (7-18); BUN/CREATININE RATIO 17.6 (5.4-32.0); CALCIUM 9.2 MG/DL (8.5-10.1); CHLORIDE 103 MMOL/L (99-107); CREATININE 1.08 MG/DL (0.60-1.10); GLUCOSE 200 MG/DL (70-104); MAGNESIUM 1.8 MG/DL (1.5-2.4); POTASSIUM 4.1 MMOL/L (3.5-5.1); SODIUM 137 MMOL/L (135-145); eGFR 66 ML/MIN
[2017-08-13] MEDS: amLODIPine 5mg tablet PO SCH (07:35)
[2017-08-13] MEDS: cloNIDine 0.1 mg tablet PO SCH ×3 (07:35→20:41)
[2017-08-13] MEDS: lactobacillus rhamnosus 10,000 MMU CELLS/CAPSULE PO SCH ×2 (07:36→20:42)
[2017-08-13] MEDS: docusate sod 100mg capsule PO SCH ×2 (07:36→20:42)
[2017-08-13] MEDS: atorvastatin 20mg tablet PO SCH (07:36)
[2017-08-13] MEDS: methadone 10mg tablet PO SCH ×2 (07:36→20:42)
[2017-08-13] MEDS: potassium chloride 8mEq ER tablet PO SCH ×2 (07:36→20:42)
[2017-08-13] MEDS: isosorbide mononitrate 30mg tab.SR.24H PO SCH (07:36)
[2017-08-13] MEDS: carVEDilol 12.5mg tablet PO SCH ×2 (07:36→20:42)
[2017-08-13] MEDS: multivitamins, therapeutics tablet PO SCH (07:36)
[2017-08-13] MEDS: aspirin 81mg tab.chew PO SCH (07:36)
[2017-08-13] MEDS: ticagrelor 90mg tablet PO SCH ×2 (07:37→20:42)
[2017-08-13] MEDS: HYDROcodone/acetaminophen 10/325mg tab PO PRN ×2 (07:37→20:43)
[2017-08-13] MEDS: CefTRIAXone 2gm/D5W 50ml 50 ML IV SCH (07:37)
[2017-08-13] MEDS: VILANTEROL TR IH SCH (08:00)
[2017-08-13] MEDS: UMECLIDINIUM BRM IH SCH (08:00)
[2017-08-13] MEDS: insulin Lispro (HumaLOG) vial - multi-dose SQ SCH ×3 (08:31→19:00)
[2017-08-13] MEDS: terazosin 5mg capsule PO SCH (20:42)
[2017-08-13] MEDS: sennosides 8.6mg tablet PO SCH (20:42)
[2017-08-13] MEDS: FENOFIBRATE MICRONIZED 200 MG PO SCH (20:43)
[2017-08-13] MEDS: insulin glargine (Lantus) pen - multi-dose SQ SCH (21:16)
[2017-08-14 02:00] VITALS: BP 154/60
[2017-08-14 05:01] LABS: BASOPHILS % (AUTO) 0.3 % (0-1); EOSINOPHILS # (AUTO) 0.2 X10'3 (0-0.9); EOSINOPHILS % (AUTO) 2.9 % (0-6); LYMPHOCYTES % (AUTO) 13.3 % (21-51); MEAN CORPUSCULAR HEMOGLOBIN 30.5 PG (27.0-31.0); MEAN CORPUSCULAR HGB CONC 34.2 % (33.0-36.5); MEAN CORPUSCULAR VOLUME 89.1 FL (78-98); MEAN PLATELET VOLUME 9.5 FL (7.4-10.4); MONOCYTES # (AUTO) 0.8 X10'3 (0-0.9); MONOCYTES % (AUTO) 10.1 % (2-12); NEUTROPHILS # (AUTO) 5.6 X10'3 (1.8-7.7); NEUTROPHILS % (AUTO) 73.4 % (42-75); PLATELET COUNT 330 X10'3 (140-440); RED BLOOD COUNT 3.93 X10'6 (4.70-6.10); RED CELL DISTRIBUTION WIDTH 15.4 % (11.5-14.5); WHITE BLOOD COUNT 7.7 X10'3 (4.5-11.0)
[2017-08-14 05:25] LABS: ALBUMIN 2.4 G/DL (3.4-5.0); ANION GAP 9 (8-16); BLOOD UREA NITROGEN 20 MG/DL (7-18); BUN/CREATININE RATIO 21.5 (5.4-32.0); CALCIUM 9.3 MG/DL (8.5-10.1); CHLORIDE 104 MMOL/L (99-107); CREATININE 0.93 MG/DL (0.60-1.10); GLUCOSE 178 MG/DL (70-104); MAGNESIUM 1.8 MG/DL (1.5-2.4); POTASSIUM 3.9 MMOL/L (3.5-5.1); SODIUM 138 MMOL/L (135-145); TOTAL CARBON DIOXIDE 24.9 MMOL/L (24-32); eGFR 79 ML/MIN
[2017-08-14 06:00] VITALS: BP 141/87
[2017-08-14] MEDS: potassium chloride 8mEq ER tablet PO SCH (08:15)
[2017-08-14] MEDS: amLODIPine 5mg tablet PO SCH (08:15)
[2017-08-14] MEDS: methadone 10mg tablet PO SCH (08:15)
[2017-08-14] MEDS: HYDROcodone/acetaminophen 10/325mg tab PO PRN ×2 (08:15→13:46)
[2017-08-14] MEDS: docusate sod 100mg capsule PO SCH (08:16)
[2017-08-14] MEDS: carVEDilol 12.5mg tablet PO SCH (08:16)
[2017-08-14] MEDS: multivitamins, therapeutics tablet PO SCH (08:16)
[2017-08-14] MEDS: cloNIDine 0.1 mg tablet PO SCH ×2 (08:16→13:37)
[2017-08-14] MEDS: aspirin 81mg tab.chew PO SCH (08:16)
[2017-08-14] MEDS: isosorbide mononitrate 30mg tab.SR.24H PO SCH (08:16)
[2017-08-14] MEDS: atorvastatin 20mg tablet PO SCH (08:17)
[2017-08-14] MEDS: ticagrelor 90mg tablet PO SCH (08:17)
[2017-08-14] MEDS: CefTRIAXone 2gm/D5W 50ml 50 ML IV SCH (08:17)
[2017-08-14] MEDS: lactobacillus rhamnosus 10,000 MMU CELLS/CAPSULE PO SCH (08:17)
[2017-08-14 10:00] VITALS: BP 146/93
[2017-08-14] MEDS: insulin Lispro (HumaLOG) vial - multi-dose SQ SCH (13:31)
[2017-08-14] MEDS: VILANTEROL TR IH SCH (14:25)
[2017-08-14] MEDS: UMECLIDINIUM BRM IH SCH (14:25)
[2017-08-14] MEDS ORDERED: CIPR-259 PO (14:26)
== END 2017-08-14 16:30 | disposition home health service (06) | DRG 871 ==
LOC: ER 08:03 → ED HOLD 10:36 → EDBEDREQ 11:29 → PCU 3S 12:00
PROVIDERS: ADMIT Family Medicine; ATTEND Family Medicine
DX: A41.9 Sepsis, unspecified organism (principal); G93.41 Metabolic encephalopathy; N39.0 Urinary tract infection, site not specified; N17.9 Acute kidney failure, unspecified; I25.10 Atherosclerotic heart disease of native coronary artery without angina pectoris; I25.2 Old myocardial infarction; J44.9 Chronic obstructive pulmonary disease, unspecified; I12.9 Hypertensive chronic kidney disease with stage 1 through stage 4 chronic kidney disease, or unspecified chronic kidney disease; E11.22 Type 2 diabetes mellitus with diabetic chronic kidney disease; N18.2 Chronic kidney disease, stage 2 (mild); E78.5 Hyperlipidemia, unspecified; B96.20 Unspecified Escherichia coli [E. coli] as the cause of diseases classified elsewhere; B96.1 Klebsiella pneumoniae [K. pneumoniae] as the cause of diseases classified elsewhere; K21.9 Gastro-esophageal reflux disease without esophagitis; Z95.5 Presence of coronary angioplasty implant and graft; Z95.1 Presence of aortocoronary bypass graft; Z90.49 Acquired absence of other specified parts of digestive tract; Z88.8 Allergy status to other drugs, medicaments and biological substances; Z91.048 Other nonmedicinal substance allergy status; Z79.899 Other long term (current) drug therapy
CPT/HCPCS: 36415; 36600; 71045; 74176; 80048; 80053; 81001; 82803; 82948; 83036; 83605; 83735; 84145; 84484; 85018; 85025; 85610; 85730; 87040; 87070; 87077; 87088; 87186; 93005; 94760; 96365; 96375; 97110; 97116; 97161; 97530; 99285; A4353; J0696; J1200; J1815; J1940; J2405; J2765; J7030; Q0164

== ENCOUNTER 2017-08-18 04:08 | Outpatient (CLI) | payer MEDICARE, OTHER ==
[~2017-08-18 04:08] MED LIST changes: +CIPR-259 PO; -UMEC1DIS PO
== END 2017-08-18 23:59 | disposition home or self-care (01) ==
LOC: DIABETIC 04:08
PROVIDERS: ATTEND Family Medicine
DX: E11.65 Type 2 diabetes mellitus with hyperglycemia (principal); I13.0 Hypertensive heart and chronic kidney disease with heart failure and stage 1 through stage 4 chronic kidney disease, or unspecified chronic kidney disease; E11.22 Type 2 diabetes mellitus with diabetic chronic kidney disease; N18.2 Chronic kidney disease, stage 2 (mild); I21.4 Non-ST elevation (NSTEMI) myocardial infarction; N17.9 Acute kidney failure, unspecified; J44.9 Chronic obstructive pulmonary disease, unspecified; K21.9 Gastro-esophageal reflux disease without esophagitis; E78.5 Hyperlipidemia, unspecified; Z95.1 Presence of aortocoronary bypass graft; Z79.899 Other long term (current) drug therapy; Z79.4 Long term (current) use of insulin; Z79.82 Long term (current) use of aspirin
CPT/HCPCS: G0108

== ENCOUNTER 2017-11-16 00:14 | Outpatient (CLI) | payer MEDICARE, OTHER ==
[~2017-11-16 00:14] MED LIST changes: -CIPR-259 PO; +HYDR-4353 PO; -HYDR-565 PO
== END 2017-11-16 23:59 | disposition home or self-care (01) ==
LOC: DIABETIC 00:14
PROVIDERS: ATTEND Family Medicine
DX: E11.9 Type 2 diabetes mellitus without complications (principal)

== ENCOUNTER 2018-01-18 08:34 | Emergency (ER) | payer MEDICARE, OTHER ==
[~2018-01-18] VITALS: Ht 182.9 cm; Wt 88.2 kg
[2018-01-18 08:38] VITALS: BP 193/92
[2018-01-18] MEDS ORDERED: PANT40TA4 PO (09:00)
== END 2018-01-18 09:42 | disposition home or self-care (01) ==
LOC: ER 08:34
DX: R07.9 Chest pain, unspecified (principal); R41.0 Disorientation, unspecified; I10 Essential (primary) hypertension; I25.2 Old myocardial infarction; K21.9 Gastro-esophageal reflux disease without esophagitis; E11.9 Type 2 diabetes mellitus without complications; Z90.49 Acquired absence of other specified parts of digestive tract; Z95.1 Presence of aortocoronary bypass graft; Z88.8 Allergy status to other drugs, medicaments and biological substances; Z79.82 Long term (current) use of aspirin; Z79.4 Long term (current) use of insulin; Z79.899 Other long term (current) drug therapy
CPT/HCPCS: 93005; 99283

== ENCOUNTER 2018-02-23 05:07 | Outpatient (CLI) | payer MEDICARE, OTHER ==
[~2018-02-23 05:07] MED LIST changes: +PANT40TA4 PO
== END 2018-02-23 23:59 | disposition home or self-care (01) ==
LOC: DIABETIC 05:07
PROVIDERS: ATTEND Family Medicine
DX: Z71.3 Dietary counseling and surveillance (principal); E11.9 Type 2 diabetes mellitus without complications
CPT/HCPCS: G0108

== ENCOUNTER 2018-08-24 04:56 | Outpatient (CLI) | payer MEDICARE, OTHER | END 2018-08-24 23:59 | disposition home or self-care (01) | LOC: DIABETIC 04:56 | PROVIDERS: ATTEND Family Medicine | DX: E11.65 Type 2 diabetes mellitus with hyperglycemia (principal); I10 Essential (primary) hypertension; Z79.4 Long term (current) use of insulin; Z79.899 Other long term (current) drug therapy | CPT/HCPCS: G0108 ==

== ENCOUNTER 2018-09-22 16:03 | Outpatient (CLI) | payer MEDICARE, OTHER | END 2018-09-22 23:59 | disposition home or self-care (01) | LOC: CARD DIAG 16:03 | PROVIDERS: ATTEND Internal Medicine Cardiovascular Disease | DX: I08.8 Other rheumatic multiple valve diseases (principal); J98.11 Atelectasis; I11.0 Hypertensive heart disease with heart failure; I50.9 Heart failure, unspecified; J44.9 Chronic obstructive pulmonary disease, unspecified; M47.814 Spondylosis without myelopathy or radiculopathy, thoracic region; M40.294 Other kyphosis, thoracic region; I25.2 Old myocardial infarction; E11.9 Type 2 diabetes mellitus without complications; Z95.1 Presence of aortocoronary bypass graft; Z87.891 Personal history of nicotine dependence; Z95.5 Presence of coronary angioplasty implant and graft | CPT/HCPCS: 71046; 93306 ==

== ENCOUNTER 2018-11-30 00:20 | Outpatient (CLI) | payer MEDICARE, OTHER | END 2018-11-30 23:59 | disposition home or self-care (01) | LOC: DIABETIC 00:20 | PROVIDERS: ATTEND Family Medicine | DX: E11.65 Type 2 diabetes mellitus with hyperglycemia (principal); I10 Essential (primary) hypertension; Z79.4 Long term (current) use of insulin; Z79.82 Long term (current) use of aspirin; Z79.899 Other long term (current) drug therapy; Z95.1 Presence of aortocoronary bypass graft | CPT/HCPCS: G0108 ==

== ENCOUNTER 2019-03-02 06:53 | Day surgery (SDC) | payer MEDICARE, OTHER ==
[2019-03-01 10:14] LABS: EOSINOPHILS # (AUTO) 0.1 X10'3 (0-0.9); EOSINOPHILS % (AUTO) 2.9 % (0-6); HEMATOCRIT 36.4 % (42.0-52.0); HEMOGLOBIN 12.3 g/dl (14.0-17.9); LYMPHOCYTES # (AUTO) 0.9 X10'3 (1.1-4.8); LYMPHOCYTES % (AUTO) 19.1 % (21-51); MEAN CORPUSCULAR HEMOGLOBIN 31.9 PG (27.0-31.0); MEAN CORPUSCULAR HGB CONC 33.8 g/dL (33.0-36.5); MEAN CORPUSCULAR VOLUME 94.2 FL (78-98); MONOCYTES # (AUTO) 0.6 X10'3 (0-0.9); MONOCYTES % (AUTO) 11.9 % (2-12); NEUTROPHILS # (AUTO) 3.1 X10'3 (1.8-7.7); NEUTROPHILS % (AUTO) 65.1 % (42-75); PLATELET COUNT 197 X10'3 (140-440); RED BLOOD COUNT 3.86 X10'6 (4.70-6.10); RED CELL DISTRIBUTION WIDTH 14.3 % (11.5-14.5); WHITE BLOOD COUNT 4.8 X10'3 (4.5-11.0)
[2019-03-01 10:27] LABS: PARTIAL THROMBOPLASTIN TIME 26 SECONDS (22-32)
[2019-03-01 14:53] LABS: ALBUMIN 3.6 G/DL (3.4-5.0); ANION GAP 7 (8-16); BLOOD UREA NITROGEN 38 MG/DL (7-18); BUN/CREATININE RATIO 22.8 (5.4-32.0); CALCIUM 9.3 MG/DL (8.5-10.1); CHLORIDE 107 MMOL/L (99-107); CREATININE 1.67 MG/DL (0.60-1.10); GLUCOSE 137 MG/DL (70-104); POTASSIUM 4.2 MMOL/L (3.5-5.1); SODIUM 147 MMOL/L (135-145); TOTAL CARBON DIOXIDE 33.1 MMOL/L (24-32); eGFR 40 ML/MIN
[2019-03-02] VITALS (12 sets, daily range): BP systolic 144–171; BP diastolic 60–150
[~2019-03-02] VITALS: Ht 177.8 cm; Wt 89.6 kg
[2019-03-02] MEDS ORDERED: LORazepam 0.5 MG tablet PO PRN (07:25)
[2019-03-02] MEDS ORDERED: normal saline 1,000 ML IV SCH (07:25)
[2019-03-02] MEDS ORDERED: diphenhydrAMINE 25mg capsule PO PRN (07:25)
[2019-03-02] MEDS ORDERED: FAMO-128 PO (07:44)
[2019-03-02] MEDS ORDERED: ZAR2.5T PO (07:44)
[2019-03-02] MEDS ORDERED: OXYGEN NASALCANN (07:44)
[2019-03-02] MEDS ORDERED: LEVO100T PO (07:44)
[2019-03-02] MEDS ORDERED: sodium bicarbonate (8.4%) inj. 75 ML in dextrose 5% water 500ml 500 ML IV ONE (07:55)
[2019-03-02] MEDS: acetylcysteine 200 MG/ml 4ml vial PO PRN ×2 (08:01→18:26)
[2019-03-02] MEDS ORDERED: LIDOcaine/PRILOcaine 5gm cream TP ONE (08:05)
[2019-03-02] MEDS ORDERED: nitroGLYCERIN-Tridil 50MG/D5W 250 ML IV ONE (10:02)
[2019-03-02] MEDS ORDERED: fentaNYL/PF 50MCG/1 ML 2ML syringe ONE ×2 (10:02→11:53)
[2019-03-02] MEDS ORDERED: verapamil 2.5 mg/ml inj IV ONE (10:02)
[2019-03-02] MEDS ORDERED: iohexol 350 MG/ML 50ML vial IV ONE (10:02)
[2019-03-02] MEDS ORDERED: midazolam 2 mg/2 ml injection ONE ×2 (10:02→11:51)
[2019-03-02] MEDS ORDERED: heparin 1,000unit/ml 10ml vial 10 ML ONE (10:02)
[2019-03-02] MEDS ORDERED: iohexol 350MG/ML 100ml bottle IV ONE ×3 (10:02→11:53)
[2019-03-02] MEDS ORDERED: LIDOcaine 1% (10mg/ml)w/preservative injection 20ml MDV ONE (10:02)
[2019-03-02] MEDS ORDERED: heparin 1,000 UNITS/NS 500ml 500 ML ONE (11:37)
[2019-03-02] MEDS ORDERED: heparin 25,000 UNIT/250ml bag 250 ML IV ONE (11:42)
[2019-03-02] MEDS ORDERED: ondansetron/PF 4mg/2ml inj IV PRN (12:40)
[2019-03-02] MEDS ORDERED: proCHLORperazine 10 MG/2 ml inj IV PRN (12:40)
[2019-03-02] MEDS ORDERED: nitroGLYCERIN 0.4mg SUBLingual tab SL PRN (12:40)
[2019-03-02] MEDS ORDERED: OXAZEpam 15mg capsule PO PRN (12:40)
[2019-03-02] MEDS ORDERED: HYDROcodone/acetaminophen 10/325mg tab PO PRN (12:40)
[2019-03-02] MEDS ORDERED: HYDROcodone/acetaminophen 5mg/325mg tablet PO PRN (12:40)
[2019-03-02] MEDS ORDERED: acetaminophen 325mg tablet PO PRN (12:40)
[2019-03-02] MEDS: sodium bicarbonate (8.4%) inj. 75 MEQ in dextrose 5% water 500ml 500 ML IV SCH ×2 (13:28→17:42)
[2019-03-02 15:40] LABS: ISTAT HGB ART 11.9 g/dl (14.0-18.0); ISTAT Hct ART 35 %PCV (42-52); ISTAT O2 SATURATION ARTERIAL 97 % (95-98); ISTAT SOURCE ART
[2019-03-02 15:40] LABS: ISTAT Hct MIX 35 %PCV (42-52); ISTAT O2 SATURATION MIX VENOUS 72 % (60-80); ISTAT SOURCE MIX
== END 2019-03-02 19:55 | disposition home or self-care (01) ==
LOC: SSTAY O 06:53
PROVIDERS: ATTEND Internal Medicine Cardiovascular Disease
DX: R94.39 Abnormal result of other cardiovascular function study (principal); I25.10 Atherosclerotic heart disease of native coronary artery without angina pectoris; R07.9 Chest pain, unspecified; R06.02 Shortness of breath; R53.83 Other fatigue; I11.0 Hypertensive heart disease with heart failure; I50.9 Heart failure, unspecified; E11.9 Type 2 diabetes mellitus without complications; E78.5 Hyperlipidemia, unspecified; Z95.1 Presence of aortocoronary bypass graft
CPT/HCPCS: 36415; 80048; 82803; 82948; 85014; 85025; 85347; 85610; 85730; 93005; 93461; C1769; C1894; J1644; J2001; J2250; J3010; J7030; Q0163; Q9967; 93459; 99152; 99153; A4620; C1760; J3490

== ENCOUNTER 2019-03-15 06:40 | Outpatient (CLI) | payer MEDICARE, OTHER ==
[~2019-03-15 06:40] MED LIST changes: -AMLO10TA4 PO; +FAMO-128 PO; +LEVO100T PO; -METH-603 PO; +OXYGEN NASALCANN; -PANT40TA4 PO; -PROC-8 PO; +ZAR2.5T PO
== END 2019-03-15 23:59 | disposition home or self-care (01) ==
LOC: DIABETIC 06:40
PROVIDERS: ATTEND Family Medicine
DX: E11.65 Type 2 diabetes mellitus with hyperglycemia (principal)
CPT/HCPCS: G0108